=== PATIENT | male | born 1950 | race Caucasian/White ===

== ENCOUNTER 2019-08-24 14:34 | Emergency (ER) | payer MEDICARE ==
[2019-08-24] MEDS ORDERED: ELIQUIS5 MG PO (15:00)
[2019-08-24] MEDS ORDERED: ATORVASTATIN CA40 MG PO (15:00)
[2019-08-24] MEDS ORDERED: COZAAR25 MG PO (15:01)
[2019-08-24] MEDS ORDERED: NORVASC5 M1 PO (15:01)
[2019-08-24] MEDS ORDERED: PROAIR HFA108 MCG/AC IN (15:02)
[2019-08-24] MEDS ORDERED: ANORO ELLIPTA 61 AER IN (15:02)
[2019-08-24] MEDS ORDERED: VITAMIN D2000 UNI1 PO (15:03)
[2019-08-24] MEDS ORDERED: PRESERVISION AREDS 2 PO (15:05)
[2019-08-24] MEDS ORDERED: ULTRAM50 MG PO (17:21)
[2019-08-24 17:36] VITALS: BP 126/79
== END 2019-08-24 17:43 | disposition home or self-care (01) ==
LOC: ED 14:34
DX: S43.401A Unspecified sprain of right shoulder joint, initial encounter (principal); E11.9 Type 2 diabetes mellitus without complications; I10 Essential (primary) hypertension; J44.9 Chronic obstructive pulmonary disease, unspecified; I48.91 Unspecified atrial fibrillation; X50.3XXA Overexertion from repetitive movements, initial encounter; Y93.89 Activity, other specified